=== PATIENT | male | born 1995 | race Two or more races ===

== ENCOUNTER 2019-07-27 00:18 | Emergency (ER) | payer MEDICAID ==
[~2019-07-27] VITALS: Ht 167.6 cm; Wt 54.4 kg
[2019-07-27 00:23] VITALS: BP 154/73
--- NOTE | 2019-07-27 00:45 | NUR ---
WOUND CARE PROVIDED TO PT. PER VERBAL MD ORDER, WILL ADMINISTER DERMABOND TO WOUND
== END 2019-07-27 01:11 | disposition home or self-care (01) ==
LOC: ER 00:25
DX: S01.81XA Laceration without foreign body of other part of head, initial encounter (principal); I10 Essential (primary) hypertension; F10.10 Alcohol abuse, uncomplicated; F17.200 Nicotine dependence, unspecified, uncomplicated; Y90.9 Presence of alcohol in blood, level not specified; W18.09XA Striking against other object with subsequent fall, initial encounter; Y93.89 Activity, other specified; Y92.89 Other specified places as the place of occurrence of the external cause; Y99.8 Other external cause status
CPT/HCPCS: 12011; 99283; A6403

== ENCOUNTER 2021-09-14 17:37 | Emergency (ER) | payer MEDICAID ==
[~2021-09-14] VITALS: Ht 165.1 cm; Wt 54.4 kg
[2021-09-14 17:46] VITALS: BP 125/82
--- NOTE | 2021-09-14 18:19 | NUR ---
Patient eloped from facility. ER MD notified.
== END 2021-09-14 18:19 | disposition left against medical advice (07) ==
LOC: ER 17:40
DX: R23.4 Changes in skin texture (principal); I10 Essential (primary) hypertension; F17.200 Nicotine dependence, unspecified, uncomplicated